=== PATIENT | female | born 1985 | race Two or more races ===

== ENCOUNTER 2025-02-01 10:41 | Emergency (ER) | payer OTHER ==
[~2025-02-01] VITALS: Ht 162.6 cm; Wt 63.5 kg
[2025-02-01 11:13] LABS: PLATELET COUNT (AUTO) 150 K/uL (150-450); RED BLOOD CELL COUNT(AUTO) 4.90 MIL/uL (4.0-5.2); RED CELL DISTRIBUTION WIDTH 14.8 % (11.5-15.0); WHITE BLOOD COUNT (AUTO) 5.6 K/uL (4.3-11.0)
[2025-02-01 11:23] LABS: CALCIUM, SERUM 9.1 mg/dL (8.5-10.1); CREATININE 0.8 mg/dL (0.6-1.3); SODIUM SERUM 139 mmol/L (136-145); UREA NITROGEN, BLOOD 22 mg/dL (7-18)
[2025-02-01 11:36] LABS: ASPARTATE AMINOTRANSFERASE 16 U/L (15-37); NT-PRO BNP 87 pg/mL (0-125); TOTAL PROTEIN, SERUM 7.2 g/dL (6.4-8.2)
[2025-02-01] MEDS ORDERED: IBUPROFEN 600 MG TABLET ONE (11:39)
[2025-02-01] MEDS: IBUPROFEN 600 MG TABLET PO ONE (11:40)
[2025-02-01 12:42] VITALS: BP 100/72; TEMP 98.2; O2SAT 99
== END 2025-02-01 12:42 | disposition home or self-care (01) ==
LOC: ER 10:44
DX: R07.89 Other chest pain (principal); E78.5 Hyperlipidemia, unspecified; R10.2 Pelvic and perineal pain; R06.02 Shortness of breath
CPT/HCPCS: 36415; 71045-TC; 80048-TC; 80076-TC; 83880; 84484-TC; 84702-TC; 85025-TC